=== PATIENT | male | born 1965 | race Caucasian/White ===

== ENCOUNTER → 2018-09-08 09:33 | Outpatient (CLI) | payer OTHER, SELFPAY ==
[2018-09-08 11:57] LABS: Absolute Lymphocyte Count 2.61 X10^3/ul (0.83-4.51); Absolute Neutrophil Count 1.8 X10^3/uL (2.0-7.7); Basophil# 0.04 X10^3/uL; Basophil% 0.8 % (0-1); Eosinophil# 0.16 X10^3/uL; Eosinophils% 3.2 % (0-5); Hematocrit 42.3 % (40-54); Hemoglobin 14.5 g/dl (13.0-16.5); Lymphocyte # 2.61 X10^3/ul (4.0); Lymphocyte % 51.9 % (19-41); Mean Corp Hgb Conc 34.3 g/gl (32-36); Mean Corpuscular Volume 90.6 fL (80-94); Mean Platelet Vol. 9.2 fl (6.2-12.0); Neutrophil # 1.81 X10^3/uL (2.7-7.7); Neutrophil % 35.9 % (47-70); Platelet Count 267 K/mm3 (150-450); RBC Distribution Width CV 13.4 % (11.6-14.6); RBC Distribution Width SD 43.7 fl (35.1-43.9); Red Blood Count 4.67 M/mm3 (4.6-6.2)
[2018-09-08 12:08] LABS: POSITIVE COUNT NO; POSITIVE DIFFERENTIAL NO; POSITIVE MORPHOLOGY NO
[2018-09-08 12:14] LABS: AST(SGOT) 16 U/L (15-37); Alanine Aminotransfer ALT/SGPT 32 U/L (16-61); Albumin, Serum 3.8 g/dL (3.2-5.0); Alkaline Phosphatase 65 U/L (45-117); Anion Gap 13 (5-15); BUN 7 mg/dL (7-18); BUN/Creat Ratio 7.9 RATIO (10-20); Calcium,Total 8.4 mg/dL (8.5-10.1); Chloride 103 mmol/L (98-107); Cholesterol 187 mg/dL (200); Creatinine, Serum 0.88 mg/dL (0.70-1.30); EST Glomerular Filtration Rate 96 mL/min (>60); Est Glom Filt Rate - Afr Amer 116 mL/min (>60); Globulin 3.7 g/dL (2.2-4.2); Glucose 77 mg/dL (74-106); High Density Lipoprotein 54 mg/dL; PSA,Total - Annual Screen 1.46 ng/mL (0.00-4.00); Potassium 3.6 mmol/L (3.5-5.1); Protein, Total 7.5 g/dL (6.4-8.2); Sodium Level 140 mmol/L (136-145); Triglycerides 300 mg/dL; Very Low Density Lipoprotein 60 mg/dL (5-40)
== END ==
PROVIDERS: Family Provider Family Medicine; PCP Family Medicine; Visit Provider Family Medicine
DX: Z00.01 Encounter for general adult medical examination with abnormal findings (principal); Z12.5 Encounter for screening for malignant neoplasm of prostate; I10 Essential (primary) hypertension; E78.5 Hyperlipidemia, unspecified
CPT/HCPCS: 36415; 80053; 80061; 84153; 85025; G0103

== ENCOUNTER → 2020-06-23 14:49 | Outpatient (CLI) | payer OTHER, SELFPAY ==
[2020-06-23 16:57] LABS: Absolute Neutrophil Count 3.2 X10^3/uL (2.0-7.7); Basophil# 0.05 X10^3/uL; Basophil% 0.9 % (0-1); Eosinophil# 0.12 X10^3/uL; Eosinophils% 2.1 % (0-5); Hematocrit 42.8 % (40-54); Hemoglobin 14.6 g/dL (13.0-16.5); Lymphocyte % 28.2 % (19-41); Mean Corp Hgb Conc 34.1 g/dL (32-36); Mean Corpuscular Hgb 32.2 pg (27.0-32.0); Mean Corpuscular Volume 94.5 fL (80-94); Mean Platelet Vol. 9.1 fl (6.2-12.0); Monocyte# 0.66 X10^3/uL; Monocyte% 11.6 % (0-10); NRBC Flagged by Analyzer 0 % (0-5); Neutrophil # 3.23 X10^3/uL (2.7-7.7); Neutrophil % 56.8 % (47-70); Platelet Count 245 K/mm3 (150-450); RBC Distribution Width CV 13.4 % (11.6-14.6); RBC Distribution Width SD 46.6 fl (35.1-43.9); Red Blood Count 4.53 M/mm3 (4.6-6.2); White Blood Count 5.7 K/mm3 (4.4-11.0)
[2020-06-23 17:16] LABS: AST(SGOT) 92 U/L (15-37); Alanine Aminotransfer ALT/SGPT 126 U/L (16-61); Alkaline Phosphatase 118 U/L (45-117); Anion Gap 6 (5-15); BUN 12 mg/dL (7-18); BUN/Creat Ratio 10.3 RATIO (10-20); Calcium,Total 8.8 mg/dL (8.5-10.1); Chloride 106 mmol/L (98-107); Creatinine, Serum 1.17 mg/dL (0.70-1.30); EST Glomerular Filtration Rate 69 mL/min (>60); Est Glom Filt Rate - Afr Amer 83 mL/min (>60); Globulin 3.9 g/dL (2.2-4.2); Glucose 88 mg/dL (74-106); PSA,Total - Annual Screen 1.34 ng/mL (0.00-4.00); Potassium 3.8 mmol/L (3.5-5.1); Protein, Total 7.9 g/dL (6.4-8.2); Sodium Level 141 mmol/L (136-145); T4 Free Direct 1.06 ng/dL (0.76-1.46); Thyroid Stim Hormone (TSH) 2.07 uIU/mL (0.358-3.74)
[2020-06-28 12:07] LABS: Testosterone, Free 1.55 ng/dL (5.00-21.00)
[2020-06-28 15:30] LABS: Testosterone, % Free 1.89 % (1.50-4.20); Testosterone, Total 82 ng/dL (264-916)
== END ==
PROVIDERS: PCP Family Medicine; Visit Provider Family Medicine
DX: Z00.00 Encounter for general adult medical examination without abnormal findings (principal); I10 Essential (primary) hypertension; N52.9 Male erectile dysfunction, unspecified; R53.83 Other fatigue; Z12.5 Encounter for screening for malignant neoplasm of prostate
CPT/HCPCS: 36415; 80053; 84153; 84402; 84403; 84439; 84443; 85025; G0103

== ENCOUNTER → 2020-07-15 12:59 | Outpatient (CLI) | payer OTHER, SELFPAY ==
--- NOTE | 2020-07-15 13:12 | US_ITS ---
STUDY: ULTRASOUND BREAST - RIGHT REASON FOR EXAM: Male, 55 years old. Palpable lump in the right breast. TECHNIQUE: Axial and longitudinal images of the RIGHT breast were performed with a high resolution ultrasound transducer. # OF IMAGES: 37 COMPARISON: Comparison is made with prior mammogram done earlier in the day. FINDINGS: RIGHT Breast: There is a 1 cm x 1.2 cm x 1 cm hypoechoic nodular density corresponding to the mammographic abnormality in the inferior medial portion of the retroareolar region. Biopsy is recommended. The nodule is irregular. There is also evidence of a dilated ducts. US/Breast Limited Unilateral IMPRESSION: The mammographic abnormality corresponds to a 1 cm x 1.2 cm x 1 cm hypoechoic nodular density with irregular margins. Biopsy is recommended. Dilated retroareolar ducts. ASSESSMENT CATEGORY: BIRADS Category 4: Suspicious - Biopsy Should Be Considered. A letter regarding these results will be sent to the patient by the facility within 30 days. Electronically Signed: Lawrence Thomas, at 14:32 EDT , Service support ,
--- NOTE | 2020-07-15 13:12 | BI_ITS ---
MAMMOGRAPHY - BILATERAL DIAGNOSTIC REASON FOR EXAM: Male, 55 years old. Right breast pain. Retroareolar palpable mass. PERTINENT HISTORY: Non-contributory. TECHNIQUE: Digital bilateral breast mariana (3D mammographic acquisition) in the CC and MLO projections. 2-D mediolateral oblique (MLO) and craniocaudad (CC) views of both breasts were obtained. CAD: Full Field Digital Mammography with Computer Added Detection was performed. COMPARISON: None. Baseline examination. FINDINGS: Breast Composition: Heterogeneous breast tissue seen in the right breast. Fatty left breast. There is evidence of a 1.1 cm x 1.3 cm retroareolar nodule in the right breast. Correlation with ultrasound is recommended. No other significant abnormalities are identified. BI/DIAG MAMM W/CAD, BILAT IMPRESSION: Asymmetrical breast tissue where more breast tissue is seen in the right breast. 1.1 cm x 1.3 cm retroareolar nodule in the right breast. Correlation with ultrasound is recommended. ASSESSMENT CATEGORY: BIRADS Category 0: Incomplete. Need additional imaging evaluation. A letter regarding these results will be sent to the patient by the facility within 30 days. Approximately 10% of breast cancers are not detected by mammography. A normal mammogram should not delay biopsy of a clinically suspicious abnormality. Electronically Signed: Lawrence Thomas, at 14:20 EDT , Service support ,
--- NOTE | 2020-07-15 14:03 | CT_ITS ---
STUDY: CT ABDOMEN AND PELVIS WITH CONTRAST REASON FOR EXAM: Male, 55 years old. EPIGASTRIC PAIN X 6 MONTHS, RECTAL BLEEDING, RT BREAST MASS, CERVICAL ADENOPATHY RADIATION DOSAGE (If Supplied By Facility): CTDIvol = ( 16.00 ) mGy, DLP = ( 1207.85 ) mGycm TECHNIQUE: Transaxial images were obtained from the dome of the diaphragm to the symphysis pubis with oral contrast. Oral and IV Readi-CAT and 100mL Isovue-300 was administered. Sagittal and coronal images were reconstructed. Individualized dose optimization techniques were used for this CT. COMPARISON: None. FINDINGS: The visualized lung bases are unremarkable. The visualized portions of the heart are within normal limits. There is decreased attenuation of the liver consistent with steatosis. Normal gallbladder and extrahepatic biliary system. Normal spleen. Normal pancreas. Normal bilateral adrenal glands. Normal right kidney. Normal left kidney. Normal visualized stomach. Normal small intestine. There are scattered colonic diverticula consistent with diverticulosis. The appendix is visualized and appears normal. There is scattered atherosclerotic calcification of the abdominal aorta, without a demonstrated aneurysm. Normal inferior vena cava. Normal retroperitoneum. Normal urinary bladder. There are prostatic calcifications. Small benign appearing bilateral inguinal lymph nodes. There is a small umbilical hernia containing fat. Small bilateral inguinal hernias containing fat. Spondylolysis of the pars interarticularis at the L5 vertebrae. CT/Abdomen/Pelvis WITH Contrast IMPRESSION: Diffuse fatty infiltration of the liver. Electronically Signed: Lawrence Thomas, at 14:36 EDT , Service support ,
--- NOTE | 2020-07-15 14:03 | US_ITS ---
STUDY: THYROID ULTRASOUND REASON FOR EXAM: Male, 55 years old. Cervical adenopathy TECHNIQUE: Ultrasound evaluation of the thyroid was performed with real-time and static delarosa-scale imaging. COMPARISON: None. FINDINGS: Right submandibular gland measures 3 x 1 cm. Left submandibular gland measures 3.4 x 3.7 x 1.3 cm. Right parotid gland measures 4.5 x 4.7 x 1.3 cm left parotid gland measures 4.8 x 4.2 x 1.2 cm. There is a right cervical node noted measuring 1.4 x 1.3 x 0.5 cm. Mild vascular consultations are noted of the carotid vessels bilaterally. US/Head/Neck Soft Tissue IMPRESSION: No significant cervical adenopathy. Electronically Signed: Yuri Melton DO at 16:07 EDT Tel [phone], Service support ,
== END ==
PROVIDERS: PCP Family Medicine; Referring Provider Family Medicine; Visit Provider Family Medicine
DX: K92.1 Melena (principal); R14.0 Abdominal distension (gaseous); R05 Cough; R59.0 Localized enlarged lymph nodes; N63.41 Unspecified lump in right breast, subareolar
CPT/HCPCS: 74177; 76536; 76642; 77062; 77066; Q9967; G0279

== ENCOUNTER → 2020-07-22 14:05 | Outpatient (CLI) | payer OTHER, SELFPAY ==
--- NOTE | 2020-07-22 | BRBX_PTH ---
PATIENT: YASMINE MESSER LOC: [facility] U#:[id number] AGE/SX: 60/M ROOM: RE07/22/[address]: Dr. Javi Farrell MD : 1965 BED: DIS: SPEC #: [id number] RECD: 07/22/20 11:05 STATUS: EDILSON ROSHNI #: [id number] AYO: 07/22/20 00:[address]: Javi Farrell DEPT: SURGICAL PATHOLOGY RECD BY: Anderson Bañuelos ENTERED: 07/25/20 08:14 SP TYPE: BREAST BX OTHR DR: Dr. Gregorio Langston DO Tissues: Right breast, NOS Procedures: Surgery Specimen Level IV HEADER OPERATION: Right breast core biopsy PRE-OP DIAGNOSIS: Abnormal right breast ultrasound TISSUE SUBMITTED: Right breast tissue FIXATION TIME: 58 hours MICROSCOPIC DIAGNOSIS Right breast, core biopsy: Benign male breast tissue with focal ductal dilatation and changes consistent with gynecomastia. Negative for atypia or malignancy. See comment. TREE:nabeel 07/25/20 COMMENT Correlation with clinical, radiologic findings and appropriate follow up are necessary. Case has been reviewed in consultation with Dr. Domingo who concurs with the above diagnosis. IDC:AM MICROSCOPIC DESCRIPTION Slides are reviewed. GROSS DESCRIPTION Received in fixative is one container labeled with the patient's name and designated right breast. The specimen consists of multiple irregular fragments of zambrano soft tissue that in aggregate measure 1 x 0.6 x 0.1 cm. The specimen is totally submitted in one cassette. / TREE/nabeel 07/22/20 TC:5 CPT: 51365
[2020-07-22 09:24] VITALS: BMI 28.5
== END ==
PROVIDERS: PCP Family Medicine; Referring Provider Surgery; Visit Provider Surgery
DX: R92.8 Other abnormal and inconclusive findings on diagnostic imaging of breast (principal)
CPT/HCPCS: 88305

== ENCOUNTER 2021-07-11 09:46 | Day surgery (SDC) | payer OTHER, SELFPAY ==
[2021-07-11] VITALS (7 sets, daily range): BP systolic 115–179; BP diastolic 91–109; PULSE 61–72; RESP 16; TEMP 36.1–36.7; O2SAT 96–99; BMI 31.4
--- NOTE | 2021-07-11 10:13 | HP.PCM_ITS ---
History and Physical Date of Admission: 07/11/21 Intake Visit Reasons: C-Scope/EGD Chief Complaint: C-Scope/EGD [employer] Technician Required: No Is patient in pain?: No Allergies No Known Allergies Allergy (Verified 07/06/21 14:40) Medications hydrochlorothiazide 25 mg tablet tab PO 07/22/20 [History Confirmed 07/06/21] omeprazole 40 mg capsule,delayed release cap PO 07/22/20 [History Confirmed 07/06/21] sertraline 50 mg tablet tab PO 07/22/20 [History Confirmed 07/06/21] [facility] Medical History Epigastric abdominal pain Family history of malignant neoplasm of colon in mother GERD (gastroesophageal reflux disease) Hemorrhoid HTN (hypertension) Mass of right breast Rectal bleeding Surgical History History of colonoscopy (~2014) Family History (Updated 07/06/21 @ 14:38 by Mary Jane Martinez) Mother Colon cancer Hypertension Father Cancer prostate Hypertension Sister Thyroid disorder Social History (Updated 07/06/21 @ 14:38 by Mary Jane Martinez) Smoking Status: Former smoker alcohol intake: current alcohol intake frequency: 3 or more drinks per day Alcohol type: beer HPI HPI HPI: YASMINE MESSER, is a 56 M who presents to the office today for ongoing surgical consultation regarding epigastric pain and gagging. He has a family history the mother had colon cancer. I previously seen him July 22, 2020. We did a right breast biopsy at that time. I had recommended that we pursue a combined esophagogastroduodenoscopy and colonoscopy. It is of note that on July 15, [address] of the abdomen pelvis. Steatosis was noted. Scattered colonic diverticulosis. No acute findings. After discussion with Dr. Gregorio Langston the patient is now referred back for further consideration of evaluation of his abdominal pain and family history of colon cancer and a written copy of my surgical consult recommendations will be returned to Dr. Langston. The patient is still having heartburn. Epigastric discomfort. He thinks that his diastases recti also causes his pain. He claims he has been working out of town for the past year. He states he has not knowingly had COVID-19. He has not been vaccinated. He denies any bright red blood per rectum or melena. The family history of colon cancer noted. ROS General General: Yes weight change and fatigue; No appetite, colon cancer, breast cancer or weakness HEENT HEENT: No difficulty swallowing, eye injury, eye surgery, swollen glands or hoarseness Endo Endocrine: No thyroid disease, diabetes mellitus, thyroid cancer, Hair loss, heat intolerance or cold intolerance Skin Skin: No rash or changing moles Breast Breast: No left breast lump, right breast lump, nipple discharge, breast pain, abnormal mammogram, abnormal US or breast enlargement Musc Musculoskeletal: No back problems, arthritis, rheumatoid arthritis, gout or joint pain Cardio Cardiovascular: Yes high blood pressure; No murmur, pacemaker, heart disease, atrial fibrillation, heart attack, heart stent, palpitations, shortness of breat with exertion or chest pain Psych Psychiatric: No depression, anxiety or hearing voices Resp Respiratory: Yes shortness of breath, Yes sleep apnea, No cough, No COPD, No asthma, No emphysema and No wheezing Gastro Gastrointestinal: No abdominal pain, No nausea or vomiting, No diarrhea, No constipation, No blood in stool, No acid reflux, Yes hemorrhoids, No ulcers, No gallbladder problem and No black,tarry stools Rafael Hematologic: No blood thinners, No blood disorders, No bleeding, No anemia and No blood clots Neuro Neurologic: No system reviewed and no additional complaints, except as documented, No as per HPI, No abnormal gait, No abnormal hearing, No abnormal movements, No abnormal speech, No behavioral changes, No burning sensations, No confusion, No convulsions, No disequilibrium, No dizziness, No localized weakness, No frequent falls, No headache(s), No lack of coordination, No loss of vision, No memory loss, No numbness, No other visual disturbances, No radicular pain, No restless legs, No sensory deficit, No syncope, No tingling, No tremor(s), No weakness and No other Exam Const General: cooperative and comfortable Nutritional Appearance: average body habitus Orientation: alert and awake [facility] Head: normal to inspection Eyes General: appearance normal, both eyes and all related structures Resp Effort & Inspection: normal respiratory effort Auscultation: clear to auscultation bilaterally Cardio Rate: regular rate Rhythm: regular rhythm GI Palpation: soft and no hepatosplenomegaly Musc Cervical Spine: normal cervical lordosis Neuro General: patient alert Extrem General: no calf tenderness Psych Appearance: grossly normal COVID (Procedure Consent) Procedure Criteria Procedure Criteria: Yes Elective The surgeon/proceduralist and patient have discussed in detail the risk of exposure to and/or potential harm posed by the COVID-19 virus with having a surgery/procedure at this time versus the risk of delaying the surgery/procedure. It is not possible to know either the risk of delaying the surgery or procedure or chance of getting an infection with perfect accuracy, but a joint decision was made between the patient and the surgeon/proceduralist to proceed at this time with the scheduled surgery/procedure as indicated on the consent form. Assessment and Plan Assessment and Plan (1) Epigastric abdominal pain: Status: Acute (2) Family history of malignant neoplasm of colon in mother: Status: Acute Plan - Dr. Javi Farrell MD: I recommend to the patient a combined esophagogastroduodenoscopy with possible biopsy and colonoscopy possible biopsy or polypectomy as indicated. He is aware of the technique, benefit, risk, alternatives. I do not suspect that his mild diastases recti is complicating his presentation. I further encouraged him to seek out COVID-19 vaccination. He states he is currently being treated by Dr. Gregorio Langston for some shortness of breath. He denies chest pain. He is able to climb a flight of stairs. He states that remotely had a cardiac stress test and that was not remarkable. Copy: Dr. Gregorio Farrell M.D., F.A.C.S. Coding Level of Care Code Off vis,est,level 2 Diagnoses Epigastric abdominal pain R10.13 Family history of malignant neoplasm of colon in mother Z80.0 I have re-examined the patient. There are no clinical changes since date of exam. Javi Farrell M.D., F.A.C.S.
[2021-07-11] MEDS: Lactated Ringers 1,000 ML 100 ML IV (10:19)
--- NOTE | 2021-07-11 10:45 | EGD_PTH ---
PATIENT: YASMINE MESSER LOC: [facility] U#:[id number] AGE/SX: 56/M ROOM: RE07/11/[address]: Dr. Javi Farrell MD : 1965 BED: DIS: 07/11/2021 SPEC #: [id number] RECD: 07/11/21 12:22 STATUS: EDILSON ROSHNI #: [id number] AYO: 07/11/21 10:[address]: Javi Farrell DEPT: SURGICAL PATHOLOGY RECD BY: Elaina Tejada ENTERED: 07/11/21 13:01 SP TYPE: EGD BIOPSY OT DR: Dr. Gregorio Langston, DO Tissues: A - Gastric mucous membrane B - Esophagus, NOS C - Esophagus, NOS D - Transverse colon E - Transverse colon F - Descending colon G - Sigmoid colon biopsy Procedures: Special Stain Group II Surgery Specimen Level IV Alcian Blue/PAS (control) HEADER OPERATION: [place] [place] DIAGNOSIS: Epigastric abdominal pain; family history malignant neoplasm of colon TISSUE SUBMITTED: A - Antrum biopsy for H. pylori and path, B - Distal esophagus biopsies, C - Mid esophagus biopsy, D - Mid transverse polyp, E - Biopsy of distal transverse colon, F - Descending colon polyp, G - Mid sigmoid polyps x2 MICROSCOPIC DIAGNOSIS A. Antrum, biopsy: Mild gastritis. See microscopic description and comment. B. Distal esophagus, biopsy: Fragments of gastroesophageal mucosa with mild chronic inflammation. Intestinal metaplasia (goblet cell metaplasia) is not identified. See comment. C. Mid esophagus, biopsy: A fragment of squamous epithelium, no pathologic diagnosis. D. Mid transverse colon polyp, biopsy: Fragments of tubular adenoma. E. Distal transverse colon polyp, biopsy: Tubular adenoma. F. Descending colon polyp, biopsy: Tubular adenoma. G. Mid sigmoid polyp x2, biopsy: Fragments of tubular adenoma. SJ:rg 07/12/2021 COMMENT A. The results of immunohistochemistry for Helicobacter pylori will be reported separately ([id number]). B. The specimen predominantly consists of squamous epithelium. Alcian blue/PAS stain with matched control is used in the evaluation of the specimen. MICROSCOPIC DESCRIPTION Slides are reviewed. A. The specimen shows fragments of gastric mucosa with chronic inflammatory cell infiltrates in the lamina propria consisting of lymphocytes and plasma cells, consistent with mild chronic gastritis. GROSS DESCRIPTION A - Received in fixative is one container labeled with the patient's name and designated antrum biopsy. The specimen consists of one irregular fragment of light zambrano soft tissue that measures 0.3 x 0.3 x 0.1 cm. The specimen is totally submitted in one cassette. B - Received in fixative is one container labeled with the patient's name and designated distal esophagus biopsy. The specimen consists of multiple irregular fragments of light zambrano soft tissue that in aggregate measure 1.5 x 0.3 x 0.1 cm. The specimen is totally submitted in one cassette. C - Received in fixative is one container labeled with the patient's name and designated mid esophagus biopsy. The specimen consists of one irregular fragment of light zambrano soft tissue that measures 0.4 x 0.4 x 0.1 cm. The specimen is totally submitted in one cassette. D - Received in fixative is one container labeled with the patient's name and designated mid transverse polyp. The specimen consists of two irregular fragments of light zambrano soft tissue that in aggregate measure 0.6 x 0.4 x 0.1 cm. The specimen is totally submitted in one cassette. E - Received in fixative is one container labeled with the patient's name and designated biopsy of distal transverse colon. The specimen consists of two irregular fragments of light zambrano soft tissue that in aggregate measure 0.6 x 0.2 x 0.1 cm. The specimen is totally submitted in one cassette. F - Received in fixative is one container labeled with the patient's name and designated descending colon polyp. The specimen consists of a zambrano-pink polyp measuring 0.6 x 0.6 x 0.5 cm. The apparent base is inked. The polyp is bisected and submitted entirely in one cassette. G - Received in fixative is one container labeled with the patient's name and designated mid sigmoid polyps x2 biopsy. The specimen consists of multiple irregular fragments of light zambrano soft tissue that in aggregate measure 1 x 0.6 x 0.1 cm. The specimen is totally submitted in one cassette. / SJ:rg 07/11/21 TC:1 [facility]: [id number] x7, [id number]
--- NOTE | 2021-07-11 10:45 | IMM_PTH ---
PATIENT: YASMINE MESSER LOC: [facility] U#:[id number] AGE/SX: 56/M ROOM: RE07/11/[address]: Dr. Javi Farrell MD : 1965 BED: DIS: 07/11/2021 SPEC #: [id number] RECD: 07/11/21 14:13 STATUS: EDILSON REKyler #: [id number] AYO: 07/11/21 10:[address]: Javi Farrell DEPT: IMMUNOHISTOCHEMISTRY RECD BY: Charlotte Lee ENTERED: 07/11/21 14:14 SP TYPE: IMMUNO OTHR DR: Dr. Gregorio Langston, DO Tissues: A - Stomach, NOS Procedures: H Pylori (initial) PHYSICIAN & INSTITUTION [place] [id number] SPECIMEN INFORMATION: Tissue Source: A ? Antrum biopsy Clinical Info: Epigastric abdominal pain; family history malignant neoplasm of colon Specimen Number: [id number] CPT code: 27049 METHODOLOGY: Deparaffinized sections of prefer/formalin-fixed tissue or PAP/DQ stained slides are incubated with monoclonal/polyclonal antibodies/oligonucleotide probes. Localization is made via biotin free immunoperoxidase method. Appropriate controls are performed and reacted as expected. Results on target cell population are indicated in the following table: RESULTS: ANTIBODY / CLONE RESULT Block A H Pylori (polyclonal) negative These tests were developed and their performance characteristics determined by [facility]. They may not have been cleared or approved by the U.S. Food and Drug Administration. The FDA has determined that such clearance or approval is not necessary. INTERPRETATION: A. Antrum biopsy: Negative for Helicobacter pylori organisms. TREE:nabeel 07/12/2021
--- NOTE | 2021-07-11 11:38 | OP.EGD_ITS ---
Patient Name: Terrence Javier Procedure Date: 07/11/2021 10:50 AM Date of : 1965 Age: 56 Procedure: Upper GI endoscopy Indications: Epigastric abdominal pain Providers: Javi Farrell MD Medicines: See the Anesthesia note for documentation of the administered medications Complications: No immediate complications. Procedure: Pre-Anesthesia Assessment: - Prior to the procedure, a History and Physical was performed, and patient medications and allergies were reviewed. The patient's tolerance of previous anesthesia was also reviewed. The risks and benefits of the procedure and the sedation options and risks were discussed with the patient. All questions were answered, and informed consent was obtained. Prior Anticoagulants: The patient has taken no previous anticoagulant or antiplatelet agents. ASA Grade Assessment: II - A patient with mild systemic disease. After reviewing the risks and benefits, the patient was deemed in satisfactory condition to undergo the procedure. After obtaining informed consent, the endoscope was passed under direct vision. Throughout the procedure, the patient's blood pressure, pulse, and oxygen saturations were monitored continuously. The gastroscope was introduced through the mouth, and advanced to the second part of duodenum. The upper GI endoscopy was accomplished without difficulty. The patient tolerated the procedure well. Scope In: 10:55:26 AM Scope Out: 11:01:53 AM Total Procedure Duration Time 0 hours 6 minutes 27 seconds Findings: LA Grade A (one or more mucosal breaks less than 5 mm, not extending between tops of 2 mucosal folds) esophagitis with no bleeding was found 40 cm from the incisors. Biopsies were taken with a cold forceps for histology. A small hiatal hernia was present. The mid esophagus was normal. Biopsies were taken with a cold forceps for histology. Diffuse mildly erythematous mucosa without bleeding was found in the gastric antrum. Biopsies were taken with a cold forceps for histology. The examined duodenum was normal. Impression: - LA Grade A reflux esophagitis. Biopsied. - Small hiatal hernia. - Normal mid esophagus. Biopsied. - Erythematous mucosa in the antrum. Biopsied. - Normal examined duodenum. Recommendation: - Discharge patient to home. - Resume previous diet. - Continue present medications. - Telephone my office for pathology results in 1 week. Reflux esophagitis despite proton pump inhibitor Procedure Code(s): --- Professional --- 01903, Esophagogastroduodenoscopy, flexible, transoral; with biopsy, single or multiple Diagnosis Code(s): --- Professional --- K21.0, Gastro-esophageal reflux disease with esophagitis K44.9, Diaphragmatic hernia without obstruction or gangrene K31.89, Other diseases of stomach and duodenum R10.13, Epigastric pain CPT copyright 2017 [employer]. All rights reserved. The codes documented in this report are preliminary and upon process development chemist review may be revised to meet current compliance requirements. Javi Farrell MD 07/11/2021 11:37:48 AM This report has been signed electronically. Number of Addenda: 0 Note Initiated On: 07/11/2021 10:50 AM
--- NOTE | 2021-07-11 11:39 | OP.CCLET_ITS ---
07/11/2021 Gregorio Langston [address] [facility] [place] [address] Re : Upper GI endoscopy procedure for Terrence Javier Dear Dr. Langston This procedure was performed on Sunday, July 11, 2021. My impressions and recommendations are as follows: Impressions : - LA Grade A reflux esophagitis. Biopsied. - Small hiatal hernia. - Normal mid esophagus. Biopsied. - Erythematous mucosa in the antrum. Biopsied. - Normal examined duodenum. Recommendations : - Discharge patient to home. - Resume previous diet. - Continue present medications. - Telephone my office for pathology results in 1 week. Reflux esophagitis despite proton pump inhibitor My findings are described in the full procedure note, which is enclosed. If I can be of further assistance, please feel free to contact me at Doctor phone number(s): Work: . Sincerely, Javi Farrell MD 07/11/2021 11:37:48 AM This report has been signed electronically.
--- NOTE | 2021-07-11 11:44 | OP.COLON_ITS ---
Patient Name: Terrence Javier Procedure Date: 07/11/2021 11:03 AM Date of : 1965 Age: 56 Procedure: Colonoscopy Indications: Screening in patient at increased risk: Family history of 1st-degree relative with colorectal cancer Providers: Javi Farrell MD Medicines: See the Anesthesia note for documentation of the administered medications Patient Profile: Last Colonoscopy: none. The patient's first colonoscopy is today. Complications: No immediate complications. Procedure: Pre-Anesthesia Assessment: - Prior to the procedure, a History and Physical was performed, and patient medications and allergies were reviewed. The patient's tolerance of previous anesthesia was also reviewed. The risks and benefits of the procedure and the sedation options and risks were discussed with the patient. All questions were answered, and informed consent was obtained. Prior Anticoagulants: The patient has taken no previous anticoagulant or antiplatelet agents. ASA Grade Assessment: II - A patient with mild systemic disease. After reviewing the risks and benefits, the patient was deemed in satisfactory condition to undergo the procedure. After I obtained informed consent, the scope was passed under direct vision. Throughout the procedure, the patient's blood pressure, pulse, and oxygen saturations were monitored continuously. The adult colonoscope was introduced through the anus and advanced to the cecum, identified by appendiceal orifice and ileocecal valve. The colonoscopy was performed with moderate difficulty due to a tortuous colon. The patient tolerated the procedure well. The quality of the bowel preparation was good. The ileocecal valve and the appendiceal orifice were photographed. Scope In: 11:04:39 AM Scope Withdrawal Time 0 hours 17 minutes 34 seconds Scope Out: 11:32:11 AM Total Procedure Duration Time 0 hours 27 minutes 32 seconds Findings: The digital rectal exam findings include non-thrombosed external hemorrhoids, non-thrombosed internal hemorrhoids and internal hemorrhoids that prolapse with straining, but spontaneously regress to the resting position (Grade II). Pertinent negatives include normal prostate (size, shape, and consistency). A 8 mm polyp was found in the mid transverse colon. The polyp was semi-sessile. The polyp was removed with a hot snare. Resection and retrieval were complete. A 5 mm polyp was found in the distal transverse colon. The polyp was sessile. The polyp was removed with a cold biopsy forceps. Resection and retrieval were complete. A 10 mm polyp was found in the descending colon. The polyp was semi-sessile. The polyp was removed with a hot snare. Resection and retrieval were complete. To prevent bleeding post-intervention, one hemostatic clip was successfully placed. There was no bleeding at the end of the procedure. A 7 mm polyp was found in the mid sigmoid colon. The polyp was sessile. The polyp was removed with a hot snare. Resection and retrieval were complete. A 8 mm polyp was found in the mid sigmoid colon. The polyp was sessile. The polyp was removed with a hot snare. Resection and retrieval were complete. Impression: - Non-thrombosed external hemorrhoids, non-thrombosed internal hemorrhoids and internal hemorrhoids that prolapse with straining, but spontaneously regress to the resting position (Grade II) found on digital rectal exam. - One 8 mm polyp in the mid transverse colon, removed with a hot snare. Resected and retrieved. - One 5 mm polyp in the distal transverse colon, removed with a cold biopsy forceps. Resected and retrieved. - One 10 mm polyp in the descending colon, removed with a hot snare. Resected and retrieved. Clip was placed. - One 7 mm polyp in the mid sigmoid colon, removed with a hot snare. Resected and retrieved. - One 8 mm polyp in the mid sigmoid colon, removed with a hot snare. Resected and retrieved. Recommendation: - Telephone my office for pathology results in 1 week. - Repeat colonoscopy in 1 year for surveillance. - Continue present medications. Procedure Code(s): --- Professional --- 99763, Colonoscopy, flexible; with removal of tumor(s), polyp(s), or other lesion(s) by snare technique 08539, 59, Colonoscopy, flexible; with biopsy, single or multiple Diagnosis Code(s): --- Professional --- Z80.0, Family history of malignant neoplasm of digestive organs K64.1, Second degree hemorrhoids K64.4, Residual hemorrhoidal skin tags D12.3, Benign neoplasm of transverse colon (hepatic flexure or splenic flexure) D12.4, Benign neoplasm of descending colon D12.5, Benign neoplasm of sigmoid colon CPT copyright 2017 [employer]. All rights reserved. The codes documented in this report are preliminary and upon videotape editor review may be revised to meet current compliance requirements. Javi Farrell MD 07/11/2021 11:44:03 AM This report has been signed electronically. Number of Addenda: 0 Note Initiated On: 07/11/2021 11:03 AM
--- NOTE | 2021-07-11 11:45 | OP.CCLET_ITS ---
07/11/2021 Gregorio Langston [address] [facility] [place] [address] Re : Colonoscopy procedure for Terrence Javier Dear Dr. Langston This procedure was performed on Sunday, July 11, 2021. My impressions and recommendations are as follows: Impressions : - Non-thrombosed external hemorrhoids, non-thrombosed internal hemorrhoids and internal hemorrhoids that prolapse with straining, but spontaneously regress to the resting position (Grade II) found on digital rectal exam. - One 8 mm polyp in the mid transverse colon, removed with a hot snare. Resected and retrieved. - One 5 mm polyp in the distal transverse colon, removed with a cold biopsy forceps. Resected and retrieved. - One 10 mm polyp in the descending colon, removed with a hot snare. Resected and retrieved. Clip was placed. - One 7 mm polyp in the mid sigmoid colon, removed with a hot snare. Resected and retrieved. - One 8 mm polyp in the mid sigmoid colon, removed with a hot snare. Resected and retrieved. Recommendations : - Telephone my office for pathology results in 1 week. - Repeat colonoscopy in 1 year for surveillance. - Continue present medications. My findings are described in the full procedure note, which is enclosed. If I can be of further assistance, please feel free to contact me at Doctor phone number(s): Work: . Sincerely, Javi Farrell MD 07/11/2021 11:44:03 AM This report has been signed electronically.
== END 2021-07-11 12:27 | disposition home or self-care (01) ==
LOC: EN 09:47 → AC 09:49
PROVIDERS: PCP Family Medicine; Referring Provider Family Medicine; Visit Provider Surgery
PROC: 0DJD8ZZ Inspection of Lower Intestinal Tract, Via Natural or Artificial Opening Endoscopic (ICD-10-PCS; CPT 45378; principal; 2021-07-11 10:40)
DX: D12.4 Benign neoplasm of descending colon (principal); D12.5 Benign neoplasm of sigmoid colon; D12.3 Benign neoplasm of transverse colon; K64.1 Second degree hemorrhoids; K64.4 Residual hemorrhoidal skin tags; Q43.8 Other specified congenital malformations of intestine; K29.70 Gastritis, unspecified, without bleeding; K44.9 Diaphragmatic hernia without obstruction or gangrene; K31.89 Other diseases of stomach and duodenum; K21.00 Gastro-esophageal reflux disease with esophagitis, without bleeding; G47.30 Sleep apnea, unspecified; Z80.0 Family history of malignant neoplasm of digestive organs; Z87.891 Personal history of nicotine dependence; Z79.899 Other long term (current) drug therapy
CPT/HCPCS: 43239; 45380; 45385; 87426; 88305; 88313; 88342; J7120

== ENCOUNTER → 2021-07-27 12:37 | Outpatient (CLI) | payer OTHER, SELFPAY ==
--- NOTE | 2021-07-27 12:40 | RAD_ITS ---
STUDY: XR Chest 2 Views 07/27/2021 12:45 PM REASON FOR EXAM: Male, 56 years old. CHEST PAIN DYSPNEA COMPARISON: None TECHNIQUE: XR Chest 2 Views FINDINGS: There is no demonstrated pleural abnormality. Enlarged heart size. Normal mediastinum. Normal ritchie. Prominent appearing increased interstitial lung markings. Normal visualized pulmonary arteries. There is atherosclerotic calcification of the aortic arch with tortuosity. There are diffuse degenerative changes of the visualized thoracic spine. There is degenerative osteoarthritis of the bilateral shoulders. There is no demonstrated abnormality of the visualized soft tissue structures of the upper abdomen. RAD/Chest PA and Lateral IMPRESSION: There are no acute findings. Electronically Signed: Jony Campos MD at 13:01 EDT , Service support ,
== END ==
LOC: RAD 12:39
PROVIDERS: PCP Family Medicine; Referring Provider Family Medicine; Visit Provider Family Medicine
DX: R06.00 Dyspnea, unspecified (principal)
CPT/HCPCS: 71046

== ENCOUNTER → 2021-08-10 10:28 | Outpatient (CLI) | payer OTHER, SELFPAY | LOC: PSN 10:29 | PROVIDERS: PCP Family Medicine; Referring Provider Family Medicine; Visit Provider Family Medicine | DX: G47.30 Sleep apnea, unspecified (principal) | CPT/HCPCS: 94060; 94726; 94729; 95806 ==

== ENCOUNTER → 2022-08-27 | Outpatient (CLI) | payer OTHER, SELFPAY ==
[2022-08-27 13:39] LABS: Absolute Neutrophil Count 2.8 X10^3/uL (2.0-7.7); Basophil# 0.06 X10^3/uL; Basophil% 1.2 % (0-1); Eosinophil# 0.15 X10^3/uL; Eosinophils% 2.9 % (0-5); Hematocrit 44.3 % (40-54); Hemoglobin 15.8 g/dL (13.0-16.5); Lymphocyte % 28.8 % (19-41); Mean Corp Hgb Conc 35.7 g/dL (32-36); Mean Corpuscular Hgb 32.8 pg (27.0-32.0); Mean Corpuscular Volume 92.1 fL (80-94); Mean Platelet Vol. 8.9 fl (6.2-12.0); Monocyte# 0.64 X10^3/uL; Monocyte% 12.3 % (0-10); NRBC Flagged by Analyzer 0 % (0-5); Neutrophil # 2.83 X10^3/uL (2.7-7.7); Neutrophil % 54.4 % (47-70); Platelet Count 206 K/mm3 (150-450); RBC Distribution Width CV 13.1 % (11.6-14.6); RBC Distribution Width SD 43.9 fl (35.1-43.9); Red Blood Count 4.81 M/mm3 (4.6-6.2); White Blood Count 5.2 K/mm3 (4.4-11.0)
[2022-08-27 13:47] LABS: ALB/GLOB Ratio 0.9 RATIO (0.9-2.4); AST(SGOT) 60 U/L (15-37); Alanine Aminotransfer ALT/SGPT 87 U/L (16-61); Albumin, Serum 3.7 g/dL (3.2-5.0); Alkaline Phosphatase 86 U/L (45-117); Anion Gap 7 (5-15); BUN 12 mg/dL (7-18); BUN/Creat Ratio 9.4 RATIO (10-20); Calcium,Total 9.2 mg/dL (8.5-10.1); Chloride 101 mmol/L (98-107); Cholesterol 219 mg/dL (200); Creatinine, Serum 1.28 mg/dL (0.70-1.30); EST Glomerular Filtration Rate 62 mL/min (>60); Est Glom Filt Rate - Afr Amer 75 mL/min (>60); Glucose 104 mg/dL (74-106); High Density Lipoprotein 52 mg/dL; PSA,Total - Annual Screen 2.24 ng/mL (0.00-4.00); Potassium 3.4 mmol/L (3.5-5.1); Protein, Total 7.7 g/dL (6.4-8.2); Sodium Level 138 mmol/L (136-145); Triglycerides 214 mg/dL; Very Low Density Lipoprotein 43 mg/dL (5-40)
[2022-08-27 13:58] LABS: Hemoglobin A1c 5.3 % (3.8-5.6)
== END | disposition home or self-care (01) ==
LOC: BFHLAB 12:58
PROVIDERS: PCP Family Medicine; Visit Provider Family Medicine
DX: Z00.00 Encounter for general adult medical examination without abnormal findings (principal); E88.81 Metabolic syndrome and other insulin resistance; I10 Essential (primary) hypertension; R79.89 Other specified abnormal findings of blood chemistry; Z12.5 Encounter for screening for malignant neoplasm of prostate
CPT/HCPCS: 36415; 80053; 80061; 83036; 84153; 84403; 85025; G0103

== ENCOUNTER → 2023-03-22 | Outpatient (CLI) | payer OTHER, SELFPAY ==
[2023-03-22 15:27] LABS: Absolute Lymphocyte Count 1.23 X10^3/uL (0.83-4.51); Absolute Neutrophil Count 3.2 X10^3/uL (2.0-7.7); Basophil# 0.05 X10^3/uL; Eosinophil# 0.12 X10^3/uL; Eosinophils% 2.3 % (0-5); Hematocrit 46.9 % (40-54); Hemoglobin 16.1 g/dL (13.0-16.5); Lymphocyte # 1.23 X10^3/ul (0.83-4.51); Lymphocyte % 23.8 % (19-41); Mean Corp Hgb Conc 34.3 g/dL (32-36); Mean Corpuscular Hgb 32.1 pg (27.0-32.0); Mean Corpuscular Volume 93.4 fL (80-94); Mean Platelet Vol. 8.9 fl (6.2-12.0); Monocyte# 0.58 X10^3/uL; Monocyte% 11.2 % (0-10); NRBC Flagged by Analyzer 0 % (0-5); Neutrophil # 3.17 X10^3/uL (2.7-7.7); Neutrophil % 61.3 % (47-70); Platelet Count 226 K/mm3 (150-450); RBC Distribution Width CV 13.9 % (11.6-14.6); RBC Distribution Width SD 47.1 fl (35.1-43.9); Red Blood Count 5.02 M/mm3 (4.6-6.2); White Blood Count 5.2 K/mm3 (4.4-11.0)
[2023-03-22 16:00] LABS: ALB/GLOB Ratio 1.1 RATIO (0.9-2.4); AST(SGOT) 48 U/L (15-37); Alanine Aminotransfer ALT/SGPT 69 U/L (16-61); Alkaline Phosphatase 79 U/L (45-117); Anion Gap 7 (5-15); BUN 10 mg/dL (7-18); BUN/Creat Ratio 8.5 RATIO (10-20); Calcium,Total 8.8 mg/dL (8.5-10.1); Chloride 102 mmol/L (98-107); Cholesterol 217 mg/dL (200); Creatinine, Serum 1.18 mg/dL (0.70-1.30); EST Glomerular Filtration Rate 68 mL/min (>60); Est Glom Filt Rate - Afr Amer 82 mL/min (>60); Globulin 3.7 g/dL (2.2-4.2); Glucose 100 mg/dL (74-106); High Density Lipoprotein 56 mg/dL; PSA,Total- Diagnostic 4.22 ng/mL (0.0-4.0); Potassium 3.9 mmol/L (3.5-5.1); Protein, Total 7.7 g/dL (6.4-8.2); Sodium Level 136 mmol/L (136-145); T4 Free Direct 0.89 ng/dL (0.76-1.46); Thyroid Stim Hormone (TSH) 1.53 uIU/mL (0.358-3.74); Triglycerides 173 mg/dL; Very Low Density Lipoprotein 35 mg/dL (5-40)
== END | disposition home or self-care (01) ==
LOC: BFHLAB 13:43
PROVIDERS: PCP Family Medicine; Referring Provider Family Medicine; Visit Provider Family Medicine
DX: R53.83 Other fatigue (principal); I10 Essential (primary) hypertension; R79.89 Other specified abnormal findings of blood chemistry; Z51.81 Encounter for therapeutic drug level monitoring
CPT/HCPCS: 36415; 80053; 80061; 84153; 84403; 84439; 84443; 85025

== ENCOUNTER → 2023-12-30 | Outpatient (CLI) | payer OTHER, SELFPAY ==
--- OUTSIDE RECORDS SUMMARY | 2023-12-30 09:51 | XMS RPT_ITS | CCD ---
Author Name Unknown Address [address] [facility] [address] [place] [address] Organization [facility] Care Team Providers Care Typewriter Ribbon Winder Name Role Phone FREDIS MACDONALD Referring Unavailable ALMA LANGSTON Primary Care Unavailable Alma Langston Primary Care Provider [phone] Medications Current Medications Medication Drug Class(es) Dates Sig (Normalized) Sig (Original) hydroCHLOROthiazide 25 mg oral tablet (1 source) Thiazide Diuretic Start: 11-13-19 17 take 1 tablet by mouth once daily hydrochlorothiazide (HYDRODIURIL) 25 MG tablet Indications: Essential hypertension Take 1 tablet by mouth daily 30 tablet 11 11/13/2016 Active hydrocortisone acetate 25 mg rectal suppository (1 source) Corticosteroid Start: 07-02-20 16 hydrocortisone (ANUSOL-HC) 25 MG suppository Indications: Hemorrhoids, unspecified hemorrhoid type Place 1 suppository rectally every 12 hours 30 suppository 3 07/02/2016 Active magnesium sulfate 0.0277 meq/ml / potassium sulfate 0.0374 meq/ml / sodium sulfate 0.257 meq/ml oral solution (1 source) Start: 07-10-20 16 Na Sulfate-K Sulfate-Mg Sulf (SUPREP BOWEL PREP) SOLN Take 354 mLs by mouth See Admin Instructions Take one kit for prep for one day. 1 Bottle 0 07/10/2016 Active Problems Active Problems Problem Classification Problem Date Documented Da te Episodic/Chronic Immunizations and screening for infectious disease (2 sources) Encounter for screening for other viral diseases; Translations: [Encounter for screening for other viral diseases] Onset: 08-27-2022 Episodic Past or Other Problems Problem Classification Problem Date Documented Da te Episodic/Chronic Hemorrhoids (1 source) Hemorrhoids; Translations: [Unspecified hemorrhoids] Onset: 07-02-2016 07-02-2016 Episodic Other circulatory disease (1 source) Elevated blood pressure; Translations: [Elevated blood-pressure reading, without diagnosis of hypertension] Onset: 07-02-2016 06-08-2017 Episodic Results Test Name Value Interpretation Reference Range Facil ity Encounters Encounter Date Encounter Type Care Provider Facility Start: 08-27-2022 End: 08-28-2022 ambulatory FREDIS MACDONALD [facility] Start: 08-27-2022 End: 08-27-2022 Subsequent hospital visit by physician Alma Langston Work Phone: [facility] Procedures Date Procedure Procedure Detail Performing Clinician Start: 08-27-2022 COVID-19 AMBULATORY Chr marvin Macdonald MECHANIC SENIOR - FRATERNITY ADVISER Work Phone: Start: 07-13-2016 Colonoscopy Alma dickey Work Phone: Plan of Treatment Date Care Activity Detail Author Start: 07-13-2026 Screening for malign ant neoplasm of colon [facility] [employer] Start: 07-17-2023 Lipid panel Lipids [facility] Start: 06-11-2022 Influenza vaccination Flu vaccine (# 1) [facility] Start: 01-12-2016 Shingles vaccine (1 of 2) Shingles vaccine (1 of 2) [facility] Start: 2011 Screening for malign ant neoplasm of colon [facility] Start: 1985 DTaP/Tdap/Td vaccine (1 - Tdap) DTaP/Tdap/Td vaccine (1 - Tdap) [facility] Start: 01-12-1984 Hepatitis C screening Hepatitis C sc reen [facility] Start: 1981 HIV screening HIV screen [facility] [employer] Start: 1978 Depression Screen Depression Screen [facility] Start: 1965 COVID-19 Vaccine (#1) COVID-19 Vacci ne (#1) [facility] Covid-19 Ambulatory Covid-19 Amb ulatory Lab Routine 08/27/2022 8:39 PM EDT [facility] Work Phone: Immunizations Immunization Date Immunization Notes Care Provider Isaias medina 08-11-2011 influenza virus vaccine, whole virus Alma Moreman Work Phone: [employer] Phone: Payers Date Payer Category Payer Private Health Insurance [id number] 1965 Unknown [id number] Social History Date Type Detail Facility Start: 06-26-2012 Tobacco smoking stat [facility] Smokes tobacco daily [employer] History of tobacco use Cigarette Smoker [employer] Phone: Start: 06-26-2012 Cigarettes smoked current (pack per day) - Reported 1 [employer] Phone: Start: 06-26-2012 Tobacco use and exposure Smoke less tobacco non-user [employer] Phone: Start: 07-23-2016 Alcohol intake Current drinke r of alcohol (finding) [employer] Phone: Start: 07-02-2016 History SDOH Alcohol Comment case per week [employer] Phone: Start: 06-26-2012 Tobacco Comment has quit 3 christiane es in the past [employer] Phone: Start: 1965 Sex Assigned At Not on file [employer] Phone: Summary Purpose Family History No Family History Records Found Advance Directives No Advanced Directives Records Found Additional Source Comments (unrecognized sect ion and content) No Status Records Found INFORMATION SOURCE (unrecogn ized section and content) Care Teams (unrecognized sec tion and content) FOR RECORDS PERTAINING TO PATIENTS WHO ARE OR HAVE BEEN ENROLLED IN A CHEMICAL DEPENDENCY/SUBSTANCEABUSE PROGRAM, SOME INFORMATION MAY BE OMITTED. This clinical summary was aggregated from multiple sources. Caution should be exercised in using it in the provision of clinical care. This summary normalizes information from multiple sources, and as a consequence, information in this document may materially change the coding, format and clinical context of patient data. In addition, data may be omitted in some cases. CLINICAL DECISIONS SHOULD BE BASED ON THE PRIMARY CLINICAL RECORDS. [facility]. provides no warranty or guarantee of the accuracy or completeness of information in this document.
[2023-12-30 10:29] LABS: Absolute Lymphocyte Count 1.55 X10^3/uL (0.83-4.51); Absolute Neutrophil Count 4.3 X10^3/uL (2.0-7.7); Basophil# 0.06 X10^3/uL; Basophil% 0.9 % (0-1); Eosinophil# 0.15 X10^3/uL; Eosinophils% 2.3 % (0-5); Hematocrit 46.4 % (40-54); Hemoglobin 15.3 g/dL (13.0-16.5); Lymphocyte # 1.55 X10^3/ul (0.83-4.51); Lymphocyte % 23.6 % (19-41); Mean Corpuscular Hgb 30.8 pg (27.0-32.0); Mean Corpuscular Volume 93.4 fL (80-94); Mean Platelet Vol. 8.9 fl (6.2-12.0); Monocyte# 0.49 X10^3/uL; Monocyte% 7.5 % (0-10); NRBC Flagged by Analyzer 0 % (0-5); Neutrophil # 4.29 X10^3/uL (2.7-7.7); Neutrophil % 65.4 % (47-70); Platelet Count 241 K/mm3 (150-450); RBC Distribution Width CV 12.2 % (11.6-14.6); RBC Distribution Width SD 41.9 fl (35.1-43.9); Red Blood Count 4.97 M/mm3 (4.6-6.2); White Blood Count 6.6 K/mm3 (4.4-11.0)
[2023-12-30 11:12] LABS: AST(SGOT) 20 U/L (15-37); Alanine Aminotransfer ALT/SGPT 31 U/L (16-61); Alkaline Phosphatase 93 U/L (45-117); Anion Gap 4 (5-15); BUN 17 mg/dL (7-18); BUN/Creat Ratio 13.8 RATIO (10-20); Calcium,Total 9.1 mg/dL (8.5-10.1); Chloride 102 mmol/L (98-107); Cholesterol 188 mg/dL (200); Creatinine, Serum 1.23 mg/dL (0.70-1.30); EST Glomerular Filtration Rate 64 mL/min (>60); Est Glom Filt Rate - Afr Amer 78 mL/min (>60); Glucose 99 mg/dL (74-106); High Density Lipoprotein 38 mg/dL; PSA,Total - Annual Screen 3.29 ng/mL (0.00-4.00); Potassium 3.9 mmol/L (3.5-5.1); Sodium Level 135 mmol/L (136-145); Triglycerides 160 mg/dL; Very Low Density Lipoprotein 32 mg/dL (5-40)
[2023-12-30 11:25] LABS: Hemoglobin A1c 5.4 % (3.8-5.6)
== END | disposition home or self-care (01) ==
PROVIDERS: PCP Family Medicine; Referring Provider Family Medicine; Visit Provider Family Medicine
DX: Z00.00 Encounter for general adult medical examination without abnormal findings (principal); E88.810 Metabolic syndrome; I10 Essential (primary) hypertension; R79.89 Other specified abnormal findings of blood chemistry; Z12.5 Encounter for screening for malignant neoplasm of prostate
CPT/HCPCS: 36415; 80053; 80061; 83036; 84153; 84403; 85025; G0103

== ENCOUNTER → 2024-01-11 | Outpatient (CLI) | payer OTHER, SELFPAY ==
--- NOTE | 2024-01-11 08:57 | CT_ITS ---
STUDY: LOW DOSE CT LUNG CANCER SCREENING REASON FOR EXAM: Male, 59 years old. Encounter for screening for malignant neoplasm of RADIATION DOSAGE (If Supplied By Facility): CTDIvol = ( 4.02 ) mGy, DLP = ( 135.42 ) mGycm TECHNIQUE: No contrast was administered. Low dose technique was utilized (average mAS-38 and kVp 120). 1.25 mm axial source images with a slice interval of 1.25-mm were reconstructed in lung windows. 2.5 mm axial source images with a slice interval of 2.5-mm were reconstructed in lung windows. 5.0 mm axial source images with a slice interval of 5.0-mm were reconstructed in soft tissue windows. COMPARISON: None. Emphysema: Mild emphysema. No noncalcified nodule or mass. Endobronchial lesion: None Aorta: Some calcified plaque in the aortic arch but no aortic aneurysm. CORONARY ARTERIES: Coronary artery calcification is seen. Heart: No cardiomegaly. Pulmonary artery: Normal Mediastinal nodes: Normal Other chest and abdominal findings: None CT/Low Dose CT Lung Screening IMPRESSION: Lung-RADS category 1 - Continue annual screening with LDCT in 12 months. IMPORTANT NOTES FOR USE: ACR Lung-RADS Version 1.1 Assessment Categories Release Date: 2018 Category: Coded 0-4 bases on nodule(s) with highest degree of suspicion. Negative screen is defined as categories 1 and 2; a positive screen is defined as categories 3 and 4. Category 3 and 4A nodules that are unchanged on interval CT should be coded as category 2, and individuals returned to screening in 12 months. Category 4X: Category 3 or 4 nodules with additional imaging findings that increase the suspicion of lung cancer, such as spiculation, GGN that doubles in size in 1 year, enlarged lymph notes, etc. Category Modifiers: S (significant finding unrelated to lung cancer) Electronically Signed: Kelby Singh MD at 8:22 EST ,
--- OUTSIDE RECORDS SUMMARY | 2024-01-11 08:58 | XMS RPT_ITS | CCD ---
Author Name Unknown Address [address] [facility] [address] [place] [address] Organization [facility] Care Team Providers Care Regulatory Affairs Specialist Name Role Phone FREDIS MACDONALD Referring Unavailable ALMA LANGSTON Primary Care Unavailable Alma Langston Primary Care Provider [phone] Medications Current Medications Medication Drug Class(es) Dates [...] Start: 08-27-2022 End: 08-28-2022 ambulatory FREDIS MACDONALD [facility] Start: 08-27-2022 End: 08-27-2022 Subsequent hospital visit by physician Alma Langston Work Phone: [facility] Procedures Date Procedure Procedure Detail Performing Clinician Start: 08-27-2022 COVID-19 AMBULATORY Chr marvin Macdonald BACK MAKER - PRODUCTION SUPERVISOR TRAINEE Work Phone: Start: 07-13-2016 Colonoscopy Alma dickey Work Phone: Plan of Treatment Date Care Activity Detail Author Start: 07-13-2026 Screening for malign ant neoplasm of colon [facility] [employer] Start: 07-17-2023 Lipid panel Lipids [facility] Start: 06-11-2022 Influenza vaccination Flu vaccine (# 1) [facility] Start: 01-12-2016 Shingles vaccine (1 of 2) Shingles vaccine (1 of 2) [facility] Start: 2011 Screening for malign ant neoplasm of colon [facility] Start: 1985 DTaP/Tdap/Td vaccine (1 - Tdap) DTaP/Tdap/Td vaccine (1 - Tdap) [facility] Start: 01-12-1984 Hepatitis C screening Hepatitis C sc reen [facility] Start: 1981 HIV screening HIV screen [facility] [employer] Start: 1978 Depression Screen Depression Screen [facility] Start: 1965 COVID-19 Vaccine (#1) COVID-19 Vacci ne (#1) [facility] Covid-19 Ambulatory Covid-19 Amb ulatory Lab Routine 08/27/2022 8:39 PM EDT [facility] Work Phone: Immunizations Immunization Date Immunization Notes Care Provider Isaias medina 08-11-2011 influenza virus vaccine, whole virus Alma Moreman Work Phone: [employer] Phone: Payers Date Payer Category Payer Private Health Insurance [id number] 1965 Unknown [id number] Social History Date Type Detail Facility Start: 06-26-2012 Tobacco smoking stat [facility] Smokes tobacco daily [employer] History of tobacco use Cigarette Smoker [employer] Phone: Start: 06-26-2012 Cigarettes smoked current (pack per day) - Reported 1 [employer] Phone: Start: 06-26-2012 Tobacco use and exposure Smoke less tobacco non-user [employer] Phone: Start: 07-23-2016 Alcohol intake Current drinke r of alcohol (finding) [employer] Phone: Start: 07-02-2016 History SDOH Alcohol Comment case per week [employer] Phone: Start: 06-26-2012 Tobacco Comment has quit 3 christiane es in the past [employer] Phone: Start: 1965 Sex Assigned At Not on file [employer] Phone: Summary Purpose Family History No Family [...] BE BASED ON THE PRIMARY CLINICAL RECORDS. [employer] [facility]. provides no warranty or guarantee of the accuracy or completeness of information in this document.
== END | disposition home or self-care (01) ==
LOC: CT 08:56
PROVIDERS: PCP Family Medicine; Referring Provider Family Medicine; Visit Provider Family Medicine
DX: Z12.2 Encounter for screening for malignant neoplasm of respiratory organs (principal); Z87.891 Personal history of nicotine dependence
CPT/HCPCS: 71271

== ENCOUNTER → 2024-02-14 | Outpatient (CLI) | payer OTHER, SELFPAY ==
--- NOTE | 2024-02-14 13:21 | STRESSREP_ITS ---
Stress Test Report Date: 02/14/2024 Procedure: Exercise tolerance test Indications: Dyspnea on exertion Consent: Per the patient Procedure: The patient exercised on a Ede protocol for 8 minutes and 1 second achieving a peak heart rate of 166 bpm (102% predicted maximal heart rate) with a peak blood pressure 220/98 mmHg and a peak MET capacity of approximately 10.1 MET's. The baseline ECG demonstrated sinus rhythm. The peak exercise ECG demonstrated sinus tachycardia with no ischemic changes. Rare PVC noted during exercise and in recovery. The functional capacity was considered good. The patient had no complaints of chest discomfort during exercise or recovery. The examination was discontinued secondary to target heart rate being achieved and dyspnea. Impression: 1. Technically adequate (percent predicted maximal heart rate greater than 85%) exercise tolerance test 2. Peak exercise ECG with no ischemic changes 3. Rare PVC noted with exercise and in recovery 4. Baseline hypertension with hypertensive response to exercise This note was generated with Bus[employer]ation software. It may contain incorrect words, spelling, and punctuation that were not noted in checking the note before signing.
== END | disposition home or self-care (01) ==
LOC: CVS 10:58
PROVIDERS: PCP Family Medicine; Referring Provider Family Medicine; Visit Provider Family Medicine
DX: I25.10 Atherosclerotic heart disease of native coronary artery without angina pectoris (principal); R06.09 Other forms of dyspnea
CPT/HCPCS: 93017

== ENCOUNTER 2024-03-06 05:20 | Day surgery (SDC) | payer OTHER, SELFPAY ==
[2024-03-06 05:46] VITALS: BP 145/87; PULSE 66; RESP 18; TEMP 36.1; O2SAT 98; BMI 31.5
[2024-03-06] MEDS: Lactated Ringers 1,000 ML 15 ML IV (05:54)
--- NOTE | 2024-03-06 05:58 | PCM.HP.STD ---
[facility] - General General Date of Admission: 07/26/20 Date of Service: 03/06/24 Chief Complaint: Personal history colon polyps [facility] Narrative YASMINE MESSER, is a 59 M who presents today for a surveillance colonoscopy. I have most recently assisted him on July 11, 2021 with a colonoscopy where 5 polyps were removed. In addition he has a family history with a mother who had colon cancer. He is otherwise enjoying good health. Has not had any bright red blood per rectum or melena. He states that he tolerated his bowel prep well. [facility] Medical History (Updated 03/06/24 @ 06:[address] Javi Farrell MD) Alcohol use CPAP (continuous positive airway pressure) dependence Epigastric abdominal pain Family history of malignant neoplasm of colon in mother Former smoker Gastric reflux GERD (gastroesophageal reflux disease) Hemorrhoid History of stress test HTN (hypertension) Hx of adenomatous colonic polyps Leg abscess Mass of right breast Rectal bleeding Shortness of breath on exertion Sleep apnea Wears dentures Wears glasses Home Medications hydrochlorothiazide 25 mg tablet 25 mg PO DAILY 07/22/20 [History Last Taken 03/05/24] lisinopril 20 mg tablet 20 mg PO DAILY 01/06/24 [History Last Taken 03/05/24] Allergy/AdvReac Type Severity Reaction Status Date / Time No Known Allergies Allergy Verified 03/06/24 05:44 Family History Mother Colon cancer Hypertension Father Cancer prostate Hypertension Sister Thyroid disorder Surgical History History of colonoscopy (~2014) Social History (Updated 01/06/24 @ 10:41 by Paz Roque) household members: spouse Smoking Status: Former smoker alcohol intake: current alcohol intake frequency: 3 or more drinks per day Alcohol type: beer ROS Constitutional Constitutional: Reports systems reviewed and no addt'l complaints, except as documented Cardiovascular Cardiovascular: Denies chest pain Respiratory/Chest Respiratory/Chest: Denies shortness of breath at rest Gastrointestinal Gastrointestinal: Denies abdominal pain, change in bowel habits, hematochezia or melena Vital Signs Vital Signs Vital Signs: 03/06/24 05:45 03/06/24 05:46 Temperature 97.0 F L Temperature Source Temporal Pulse Rate 66 Respiratory Rate 18 Respiratory Pattern Normal Blood Pressure 145/87 H Blood Pressure Mean 106 Blood Pressure Source Monitor Blood Pressure Position Semi-Fowlers Blood Pressure Location Left Arm Pulse Ox 98 Oxygen Delivery Method Room Air Weight Weight: 232 lb 9.6 oz Body Mass Index (BMI) 31.5 Physical Exam Const alert, oriented x3 and no apparent distress General Appearance: cooperative and comfortable Eyes General Eye: normal appearance of both eyes Neck General: normal visual inspection Chest inspection of chest normal Resp Effort and Inspection: able to speak in complete sentences and symmetric chest movement Auscultation: clear to auscultation bilaterally Cardio regular rate and regular rhythm GI soft to palpation, non-tender and non-distended Extremity no calf tenderness Neuro oriented x3 Psych thought process normal Assessment & Plan Assessment/Plan (1) Hx of adenomatous colonic polyps: PLAN: Patient presents with a personal history of colon polyps for colonoscopy. He is aware of the technique, benefit, risk, alternatives. He presents via open access today. We will proceed as noted. Javi Farrell M.D., F.A.C.S.
--- NOTE | 2024-03-06 06:30 | COLBX_PTH ---
PATIENT: YASMINE MESSER LOC: EN U#:[id number] AGE/SX: 59/M ROOM: RE03/06/[address]: Dr. Javi Farrell MD : 1965 BED: DIS: 03/06/2024 SPEC #: [id number] RECD: 03/06/24 11:10 STATUS: EDILSON ROSHNI #: [id number] AYO: 03/06/24 06:[address]: Javi Farrell DEPT: SURGICAL PATHOLOGY RECD BY: Elaina Tejada ENTERED: 03/06/24 12:01 SP TYPE: COLON BX OTHR DR: Dr. Gregorio Langston, DO Tissues: A - Ascending colon B - Rectum, NOS Procedures: Surgery Specimen Level IV HEADER OPERATION: Colonoscopy with biopsy PRE-OP DIAGNOSIS: History of adenomatous colonic polyps TISSUE SUBMITTED: A- Proximal ascending colon biopsy, B- Rectal polyp biopsy MICROSCOPIC DIAGNOSIS A. Proximal ascending colon, biopsy: Fragments of tubular adenoma. B. Rectal polyp, biopsy: Fragments of tubular adenoma. Fragments of hyperplastic polyp. / 03/10/2024 MICROSCOPIC DESCRIPTION Slides are reviewed. GROSS DESCRIPTION A. Received in fixative is one container labeled with the patient's name and designated Proximal ascending colon biopsy. The specimen consists of two irregular fragments of light zambrano soft tissue that in aggregate measure 0.5 x 0.3 x 0.1 cm. The specimen is totally submitted in one cassette. B. Received in fixative is one container labeled with the patient's name and designated Rectal polyp biopsy. The specimen consists of two irregular fragments of light zambrano soft tissue that in aggregate measure 0.6 x 0.3 x 0.1 cm. The specimen is totally submitted in one cassette. / 03/06/24 TC:5 [facility]:[id number]
[2024-03-06 07:15] VITALS: BP 145/87; BP 87/73; PULSE 66; RESP 16; TEMP 35.9; O2SAT 95
--- NOTE | 2024-03-06 07:18 | OP.COLON_ITS ---
Patient Name: Terrence Javier Procedure Date: 03/06/2024 6:19 AM Date of : 1965 Age: 59 Procedure: Colonoscopy Indications: High risk colon cancer surveillance: Personal history of colonic polyps Providers: Javi Farrell MD Referring MD: Gregorio Langston Medicines: See the Anesthesia note for documentation of the administered medications Patient Profile: Last Colonoscopy: June 2021. Complications: No immediate complications. Procedure: Pre-Anesthesia Assessment: - Prior to the procedure, a History and Physical was performed, and patient medications and allergies were reviewed. The patient's tolerance of previous anesthesia was also reviewed. The risks and benefits of the procedure and the sedation options and risks were discussed with the patient. All questions were answered, and informed consent was obtained. Prior Anticoagulants: The patient has taken no anticoagulant or antiplatelet agents. ASA Grade Assessment: II - A patient with mild systemic disease. After reviewing the risks and benefits, the patient was deemed in satisfactory condition to undergo the procedure. After I obtained informed consent, the scope was passed under direct vision. Throughout the procedure, the patient's blood pressure, pulse, and oxygen saturations were monitored continuously. The colonoscope was introduced through the anus and advanced to the cecum, identified by appendiceal orifice and ileocecal valve. The colonoscopy was performed with difficulty due to a tortuous colon. Successful completion of the procedure was aided by applying abdominal pressure. The patient tolerated the procedure well. The quality of the bowel preparation was fair. The ileocecal valve and the appendiceal orifice were photographed. Scope In: 6:33:25 AM Scope Withdrawal Time 0 hours 17 minutes 5 seconds Scope Out: 7:11:34 AM Total Procedure Duration Time 0 hours 38 minutes 9 seconds Findings: The digital rectal exam findings include thrombosed external hemorrhoids, non-thrombosed internal hemorrhoids and internal hemorrhoids that prolapse with straining, but require manual replacement into the anal canal (Grade III). Pertinent negatives include normal prostate (size, shape, and consistency). Multiple diverticula were found in the entire colon. A 4 mm polyp was found in the proximal ascending colon. The polyp was sessile. The polyp was removed with a cold biopsy forceps. Resection and retrieval were complete. A 3 mm polyp was found in the proximal rectum. The polyp was sessile. The polyp was removed with a cold biopsy forceps. Resection and retrieval were complete. A 5 mm polyp was found in the proximal rectum. The polyp was sessile. The polyp was removed with a cold snare. Resection and retrieval were complete. Impression: - Preparation of the colon was fair. - Thrombosed external hemorrhoids, non-thrombosed internal hemorrhoids and internal hemorrhoids that prolapse with straining, but require manual replacement into the anal canal (Grade III) found on digital rectal exam. - Diverticulosis in the entire examined colon. - One 4 mm polyp in the proximal ascending colon, removed with a cold biopsy forceps. Resected and retrieved. - One 3 mm polyp in the proximal rectum, removed with a cold biopsy forceps. Resected and retrieved. - One 5 mm polyp in the proximal rectum, removed with a cold snare. Resected and retrieved. Recommendation: - Repeat colonoscopy in 5 years for surveillance based on pathology results. - Telephone my office for pathology results in 1 week. - Continue present medications. Procedure Code(s): --- Professional --- 35496, Colonoscopy, flexible; with removal of tumor(s), polyp(s), or other lesion(s) by snare technique 32088, 59, Colonoscopy, flexible; with biopsy, single or multiple Diagnosis Code(s): --- Professional --- Z86.010, Personal history of colonic polyps K64.2, Third degree hemorrhoids K64.5, Perianal venous thrombosis D12.2, Benign neoplasm of ascending colon D12.8, Benign neoplasm of rectum K57.30, Diverticulosis of large intestine without perforation or abscess without bleeding CPT copyright 2021 [employer]. All rights reserved. The codes documented in this report are preliminary and upon facilities locator review may be revised to meet current compliance requirements. Javi Farrell MD 03/06/2024 7:17:55 AM This report has been signed electronically. Number of Addenda: 0 Note Initiated On: 03/06/2024 6:19 AM
--- NOTE | 2024-03-06 07:18 | OP.CCLET_ITS ---
03/06/2024 Gregorio Langston [address] [facility] [place] [address] Re : Colonoscopy procedure for Terrence Javier Dear Dr. Langston This procedure was performed on Wednesday, March 06, 2024. My impressions and recommendations are as follows: Impressions : - Preparation of the colon was fair. - Thrombosed external hemorrhoids, non-thrombosed internal hemorrhoids and internal hemorrhoids that prolapse with straining, but require manual replacement into the anal canal (Grade III) found on digital rectal exam. - Diverticulosis in the entire examined colon. - One 4 mm polyp in the proximal ascending colon, removed with a cold biopsy forceps. Resected and retrieved. - One 3 mm polyp in the proximal rectum, removed with a cold biopsy forceps. Resected and retrieved. - One 5 mm polyp in the proximal rectum, removed with a cold snare. Resected and retrieved. Recommendations : - Repeat colonoscopy in 5 years for surveillance based on pathology results. - Telephone my office for pathology results in 1 week. - Continue present medications. My findings are described in the full procedure note, which is enclosed. If I can be of further assistance, please feel free to contact me at Doctor phone number(s): Work: . Sincerely, Javi Farrell MD 03/06/2024 7:17:55 AM This report has been signed electronically.
[2024-03-06 07:20] VITALS: BP 145/87; BP 84/60; PULSE 62; RESP 16; O2SAT 96
[2024-03-06 07:25] VITALS: BP 145/87; BP 95/69; PULSE 78; RESP 16; O2SAT 96
[2024-03-06 07:30] VITALS: BP 145/87; BP 94/73; PULSE 65; RESP 16; TEMP 36.6; O2SAT 95
[2024-03-06 07:38] VITALS: BP 145/87
== END 2024-03-06 07:54 | disposition home or self-care (01) ==
LOC: EN 05:20 → AC 05:21
PROVIDERS: PCP Family Medicine; Referring Provider Family Medicine; Visit Provider Surgery
PROC: 0DJD8ZZ Inspection of Lower Intestinal Tract, Via Natural or Artificial Opening Endoscopic (ICD-10-PCS; CPT 45378; principal; 2024-03-06 06:25)
DX: Z12.11 Encounter for screening for malignant neoplasm of colon (principal); K64.2 Third degree hemorrhoids; I10 Essential (primary) hypertension; D12.2 Benign neoplasm of ascending colon; D12.8 Benign neoplasm of rectum; K57.30 Diverticulosis of large intestine without perforation or abscess without bleeding; Z79.899 Other long term (current) drug therapy; Z86.010 Personal history of colon polyps; Z80.0 Family history of malignant neoplasm of digestive organs; G47.30 Sleep apnea, unspecified; Z87.891 Personal history of nicotine dependence
CPT/HCPCS: 45380; 45385; 88305; J7120; J2405